=== PATIENT | female | born 1965 | race Caucasian/White ===

== ENCOUNTER 2016-11-27 18:04 | Inpatient (IN) | payer MEDICAID, OTHER ==
[~2016-11-27] VITALS: Ht 167.6 cm; Wt 76.7 kg
[2016-11-27] MEDS ORDERED: RIVA20TA PO (18:32)
[2016-11-27] MEDS ORDERED: GABA-531 PO (18:32)
[2016-11-27] MEDS ORDERED: CLON2 PO (18:32)
[2016-11-27] MEDS ORDERED: TRAM50TA4 PO (18:32)
[2016-11-27] MEDS ORDERED: LITH300CRT PO (18:32)
[2016-11-27] MEDS ORDERED: TIZA4TAB4 PO (18:32)
[2016-11-27] MEDS ORDERED: TRAZ150 PO (18:32)
[2016-11-27] MEDS ORDERED: LEVO100 PO (18:32)
[2016-11-27] MEDS ORDERED: QUET200T PO (18:32)
[2016-11-27 19:08] LABS: BASOPHILS % (AUTO) 0.2 % (0.0-2.0); EOSINOPHILS % (AUTO) 1.1 % (1.0-6.0); HEMOGLOBIN 13.2 g/dL (12.0-16.0); LYMPHOCYTES # (AUTO) 1.5 K/uL (1.0-4.8); MEAN CORPUSCULAR HEMOGLOBIN 29.4 pg (26.0-34.0); MEAN CORPUSCULAR HGB CONC 34.7 G/dL (31.0-37.0); MEAN CORPUSCULAR VOLUME 85 fL (80-100); MONOCYTES # (AUTO) 0.4 K/uL (0.1-1.0); MONOCYTES % (AUTO) 5.9 % (2.0-9.0); NEUTROPHILS # (AUTO) 4.3 K/uL (1.8-7.7); NEUTROPHILS % (AUTO) 68.8 % (40.0-70.0); PLATELET COUNT (AUTO) 244 K/uL (150-450); RED BLOOD CELL COUNT(AUTO) 4.49 MIL/uL (4.00-5.20); RED CELL DISTRIBUTION WIDTH 15.6 % (11.5-14.5); WHITE BLOOD COUNT (AUTO) 6.3 K/uL (4.5-11.0)
[2016-11-27 19:19] LABS: ANION GAP 6 mmol/L (8-16); CALCIUM, TOTAL 9.2 mg/dL (8.8-10.5); CARBON DIOXIDE 30 mmol/L (22-29); CHLORIDE 106 mmol/L (98-107); CREATININE 1.03 mg/dL (0.60-1.30); GLOMERULAR FILTR. RATE CALC 57 mL/min (>60); POTASSIUM 3.8 mmol/L (3.5-5.1); SODIUM SERUM 142 mmol/L (136-145); UREA NITROGEN, BLOOD 7 mg/dL (7-18)
[2016-11-27 19:24] LABS: ALANINE AMINOTRANSFERASE 26 U/L (12-78); ALBUMIN 4.1 g/dL (3.4-5.0); ASPARTATE AMINOTRANSFERASE 23 U/L (15-37); BILIRUBIN,TOTAL 0.7 mg/dL (0.1-1.0); TOTAL PROTEIN, SERUM 7.2 g/dL (6.4-8.2)
[2016-11-27] MEDS ORDERED: LORazepam 2 MG/ML VIAL IM ONE (20:00)
[2016-11-27] MEDS ORDERED: DiphenhydrAMINE HCL 50 MG/ML VIAL IM ONE (20:00)
[2016-11-27] MEDS ORDERED: HALOPERIDOL LACTATE 5 MG/ML VIAL IM ONE (20:00)
[2016-11-27] MEDS ORDERED: ZOLPIDEM TARTRATE 10 MG TABLET PO PRN (20:45)
[2016-11-27] MEDS ORDERED: OLANZapine 5 MG RAPDIS TABLET PO PRN (20:45)
[2016-11-27 20:52] LABS: LITHIUM 0.43 mmol/L (0.60-1.20)
[2016-11-27] MEDS: TraZODone HCL 50 MG TABLET PO SCH (21:00)
[2016-11-27 22:30] VITALS: BP 123/72
[2016-11-28 07:52] LABS: CHOL/HDL RATIO 3.6 (3.9-5.7)
[2016-11-28] MEDS: LITHIUM CARBONATE 300 MG CAPSULE PO SCH ×3 (09:00→16:07)
[2016-11-28] MEDS ORDERED: QUEtiapine FUMARATE 100 MG TABLET PO SCH (09:00)
[2016-11-28] MEDS ORDERED: GABAPENTIN 100 MG CAPSULE PO SCH (09:00)
[2016-11-28] MEDS: LORazepam 2 MG TABLET PO PRN ×3 (10:03→20:12)
[2016-11-28 13:58] VITALS: BP 117/94
[2016-11-28] MEDS ORDERED: ACETAMINOPHEN 325 MG TABLET PO PRN (14:45)
[2016-11-28] MEDS ORDERED: PROMETHAZINE HCL 25 MG TABLET PO PRN (14:45)
[2016-11-28] MEDS ORDERED: MAG HYDROX/AL HYDROX/SIMETH ES 30 ML SUSPENSION UDCUP PO PRN (14:45)
[2016-11-28] MEDS ORDERED: LOPERAMIDE HCL 2 MG CAPSULE PO PRN (14:45)
[2016-11-28] MEDS ORDERED: HydrOXYzine PAMOATE 50 MG CAPSULE PO PRN (14:45)
[2016-11-28] MEDS ORDERED: MAGNESIUM HYDROXIDE SUSPENSION 30 ML UDCUP PO PRN (14:45)
[2016-11-28] MEDS ORDERED: TUBERCULIN, PURIFIED PROTEIN DERIVATIVE 5 TU/0.1 ML SYG ID ONE (14:45)
[2016-11-28] MEDS ORDERED: GuaiFENesin/D-METHORPHAN [SUGAR-FREE] 200-20MG/10 ML SYRUP UDCUP PO PRN (14:45)
[2016-11-28] MEDS: THIAMINE HCL 100 MG TABLET PO SCH (16:07)
[2016-11-28] MEDS: GABAPENTIN 300 MG CAPSULE PO SCH (16:07)
[2016-11-28] MEDS: MULTIVITAMINS WITH MINERALS, THERAPEUTIC TABLET PO SCH (16:07)
[2016-11-28] MEDS: RIVAROXABAN 20 MG TABLET PO SCH (16:07)
[2016-11-28] MEDS: FOLIC ACID 1 MG TABLET PO SCH (16:07)
[2016-11-28 16:50] VITALS: BP 108/68
[2016-11-28] MEDS: TraZODone HCL 50 MG TABLET PO SCH (20:12)
[2016-11-28] MEDS: QUEtiapine FUMARATE 200 MG TABLET PO SCH (20:12)
[2016-11-29 00:57] VITALS: BP 112/71
[2016-11-29] MEDS ORDERED: PNEUMOCOCCAL VACCINE POLYVALENT 0.5 ML VIAL [PPSV23] IM ONE (02:15)
[2016-11-29] MEDS: LITHIUM CARBONATE 300 MG CAPSULE PO SCH ×2 (08:35→16:41)
[2016-11-29] MEDS: FOLIC ACID 1 MG TABLET PO SCH (08:35)
[2016-11-29] MEDS: GABAPENTIN 300 MG CAPSULE PO SCH ×3 (08:35→16:41)
[2016-11-29] MEDS: MULTIVITAMINS WITH MINERALS, THERAPEUTIC TABLET PO SCH (08:35)
[2016-11-29] MEDS: THIAMINE HCL 100 MG TABLET PO SCH ×2 (08:35→16:40)
[2016-11-29] MEDS: NICOTINE 21 MG/24 HOUR PATCH TD SCH (08:36)
[2016-11-29 08:44] VITALS: BP 108/64
[2016-11-29] MEDS: LORazepam 2 MG TABLET PO PRN ×2 (10:03→16:41)
[2016-11-29 10:07] VITALS: BP 140/63
[2016-11-29 10:16] LABS: THYROID STIMULATING HORMONE 3.43 uIU/mL (0.36-3.74)
[2016-11-29] MEDS ORDERED: ACETAMINOPHEN 325 MG TABLET PO PRN (11:30)
[2016-11-29] MEDS ORDERED: IBUPROFEN 600 MG TABLET PO PRN (11:30)
[2016-11-29] MEDS ORDERED: HALOPERIDOL LACTATE 5 MG/ML VIAL IM ONE (12:45)
[2016-11-29] MEDS ORDERED: DiphenhydrAMINE HCL 50 MG/ML VIAL IM ONE (12:45)
[2016-11-29] MEDS ORDERED: LORazepam 2 MG/ML VIAL IM ONE (12:45)
[2016-11-29] MEDS: LEVOTHYROXINE SODIUM 100 MCG TABLET PO SCH (13:02)
[2016-11-29 16:07] VITALS: BP 105/66
[2016-11-29] MEDS: RIVAROXABAN 20 MG TABLET PO SCH (16:41)
[2016-11-29] MEDS ORDERED: LORazepam 2 MG TABLET PO ONE (17:15)
[2016-11-29] MEDS: QUEtiapine FUMARATE 200 MG TABLET PO SCH (20:54)
[2016-11-29] MEDS ORDERED: GABAPENTIN 400 MG CAPSULE PO SCH (21:00)
[2016-11-30 04:04] VITALS: BP 111/77
[2016-11-30] MEDS: LEVOTHYROXINE SODIUM 100 MCG TABLET PO SCH (06:26)
[2016-11-30 08:02] VITALS: BP 102/53
[2016-11-30] MEDS: GABAPENTIN 300 MG CAPSULE PO SCH (08:10)
[2016-11-30] MEDS: LITHIUM CARBONATE 300 MG CAPSULE PO SCH ×2 (08:10→16:02)
[2016-11-30] MEDS: NICOTINE 21 MG/24 HOUR PATCH TD SCH (08:10)
[2016-11-30] MEDS: QUEtiapine FUMARATE 25 MG TABLET PO SCH ×3 (08:10→16:02)
[2016-11-30] MEDS: FOLIC ACID 1 MG TABLET PO SCH (08:10)
[2016-11-30] MEDS: THIAMINE HCL 100 MG TABLET PO SCH ×2 (08:10→16:02)
[2016-11-30] MEDS: MULTIVITAMINS WITH MINERALS, THERAPEUTIC TABLET PO SCH (08:10)
[2016-11-30] MEDS: LORazepam 2 MG TABLET PO PRN ×2 (09:11→13:38)
[2016-11-30] MEDS ORDERED: QUET25TA34 PO (15:14)
[2016-11-30] MEDS ORDERED: QUET200T29 PO (15:14)
[2016-11-30] MEDS ORDERED: LITH300C3 PO (15:14)
[2016-11-30] MEDS ORDERED: GABA-533 PO (15:14)
[2016-11-30] MEDS: RIVAROXABAN 20 MG TABLET PO SCH (16:02)
[2016-11-30 16:31] VITALS: BP 124/77
== END 2016-11-30 16:45 | disposition home or self-care (01) | DRG 750 ==
LOC: EMS 18:08 → B3A 11-28 12:33
PROVIDERS: ADMIT Psychiatry & Neurology Psychiatry; ATTEND Psychiatry & Neurology Psychiatry
DX: F25.0 Schizoaffective disorder, bipolar type (principal); Z91.14 Patient's other noncompliance with medication regimen; I10 Essential (primary) hypertension; E03.9 Hypothyroidism, unspecified; G89.29 Other chronic pain; S41.112A Laceration without foreign body of left upper arm, initial encounter; F17.210 Nicotine dependence, cigarettes, uncomplicated; Z86.718 Personal history of other venous thrombosis and embolism; Z59.0 Homelessness; Z79.01 Long term (current) use of anticoagulants; Z28.21 Immunization not carried out because of patient refusal
CPT/HCPCS: 84436; 84439; 84443; 96372; 99285; 99406; G0480; J1200; J1630; J2060

== ENCOUNTER 2017-11-02 12:00 | Inpatient (IN) | payer MEDICAID ==
[~2017-11-02 12:00] MED LIST: GABA-533 PO; LEVO100 PO; LITH300C3 PO; QUET200T29 PO; QUET25TA34 PO
[2017-11-02] MEDS ORDERED: DiphenhydrAMINE HCL 50 MG/ML VIAL ONE (12:14)
[2017-11-02] MEDS ORDERED: HALOPERIDOL LACTATE 5 MG/ML VIAL ONE (12:14)
[2017-11-02] MEDS ORDERED: LORazepam 2 MG/ML VIAL ONE (12:14)
[2017-11-02] MEDS ORDERED: HALOPERIDOL LACTATE 5 MG/ML VIAL IM ONE (12:15)
[2017-11-02] MEDS ORDERED: DiphenhydrAMINE HCL 50 MG/ML VIAL IM ONE (12:15)
[2017-11-02] MEDS ORDERED: HALOPERIDOL 5 MG TABLET PO PRN (12:15)
[2017-11-02] MEDS ORDERED: LORazepam 2 MG/ML VIAL IM ONE (12:15)
[2017-11-02] MEDS ORDERED: NICOTINE 21 MG/24 HOUR PATCH TD SCH (14:30)
[2017-11-02 14:52] VITALS: BP 92/54
[2017-11-02] MEDS ORDERED: MAG HYDROX/AL HYDROX/SIMETH ES 30 ML SUSPENSION UDCUP PO PRN (15:45)
[2017-11-02] MEDS ORDERED: LOPERAMIDE HCL 2 MG CAPSULE PO PRN (15:45)
[2017-11-02] MEDS ORDERED: PROMETHAZINE HCL 25 MG TABLET PO PRN (15:45)
[2017-11-02] MEDS ORDERED: HydrOXYzine PAMOATE 50 MG CAPSULE PO PRN (15:45)
[2017-11-02] MEDS ORDERED: MAGNESIUM HYDROXIDE SUSPENSION 30 ML UDCUP PO PRN (15:45)
[2017-11-02] MEDS ORDERED: ACETAMINOPHEN 325 MG TABLET PO PRN (15:45)
[2017-11-02] MEDS ORDERED: GuaiFENesin/D-METHORPHAN [SUGAR-FREE] 200-20MG/10 ML SYRUP UDCUP PO PRN (15:45)
[2017-11-02 16:03] VITALS: BP 115/76
[2017-11-02] MEDS: LORazepam 1 MG TABLET PO PRN ×2 (16:59→22:02)
[2017-11-02] MEDS: RIVAROXABAN 15 MG TABLET PO SCH (16:59)
[2017-11-02] MEDS: NICOTINE 21 MG/24 HOUR PATCH TD SCH (17:00)
[2017-11-02] MEDS ORDERED: RIVAROXABAN 20 MG TABLET PO ONE (17:00)
[2017-11-02] MEDS: LITHIUM CARBONATE 300 MG CAPSULE PO SCH (17:05)
[2017-11-02] MEDS: THIAMINE HCL 100 MG TABLET PO SCH (17:05)
[2017-11-02] MEDS: BACITRACIN 28.4 GM OINTMENT TP SCH (17:29)
[2017-11-02] MEDS: GABAPENTIN 300 MG CAPSULE PO SCH (20:43)
[2017-11-02] MEDS: QUEtiapine FUMARATE 200 MG TABLET PO SCH (20:43)
[2017-11-02] MEDS ORDERED: GABAPENTIN 400 MG CAPSULE PO SCH (21:00)
[2017-11-03] MEDS: LEVOTHYROXINE SODIUM 100 MCG TABLET PO SCH (06:21)
[2017-11-03] MEDS: RIVAROXABAN 15 MG TABLET PO SCH ×2 (06:22→17:00)
[2017-11-03 08:16] VITALS: BP 111/57
[2017-11-03 08:33] LABS: HEMOGLOBIN 14.3 g/dL (12.0-16.0); LYMPHOCYTES # (AUTO) 1.3 K/uL (1.0-4.8); MONOCYTES # (AUTO) 0.3 K/uL (0.1-1.0); NEUTROPHILS # (AUTO) 3.8 K/uL (1.8-7.7); RED CELL DISTRIBUTION WIDTH 12.8 % (11.5-14.5)
[2017-11-03 08:57] LABS: BASOPHILS % (AUTO) 0.3 % (0.0-2.0); EOSINOPHILS % (AUTO) 1.2 % (1.0-6.0); HEMATOCRIT 39.7 % (36-46); MEAN CORPUSCULAR HEMOGLOBIN 31.7 pg (26.0-34.0); MEAN CORPUSCULAR HGB CONC 35.9 G/dL (31.0-37.0); MEAN CORPUSCULAR VOLUME 88 fL (80-100); MONOCYTES % (AUTO) 5.4 % (2.0-9.0); NEUTROPHILS % (AUTO) 70.1 % (40.0-70.0); PLATELET COUNT (AUTO) 252 K/uL (150-450)
[2017-11-03 09:04] LABS: LITHIUM 0.45 mmol/L (0.60-1.20)
[2017-11-03] MEDS: LITHIUM CARBONATE 300 MG CAPSULE PO SCH ×2 (09:08→17:00)
[2017-11-03] MEDS: NICOTINE 21 MG/24 HOUR PATCH TD SCH (09:08)
[2017-11-03] MEDS: FOLIC ACID 1 MG TABLET PO SCH (09:08)
[2017-11-03] MEDS: BACITRACIN 28.4 GM OINTMENT TP SCH ×2 (09:08→17:00)
[2017-11-03] MEDS: THIAMINE HCL 100 MG TABLET PO SCH ×2 (09:09→17:00)
[2017-11-03] MEDS: LORazepam 1 MG TABLET PO PRN ×3 (09:09→23:28)
[2017-11-03] MEDS: GABAPENTIN 300 MG CAPSULE PO SCH ×4 (09:09→20:45)
[2017-11-03] MEDS: MULTIVITAMINS WITH MINERALS, THERAPEUTIC TABLET PO SCH (09:09)
[2017-11-03 09:14] LABS: HEMOGLOBIN A1C 5.6 % (4.5-6.2)
[2017-11-03 10:00] LABS: ALANINE AMINOTRANSFERASE 27 U/L (12-78); ALBUMIN 3.9 g/dL (3.4-5.0); ALKALINE PHOSPHATASE 71 U/L (46-116); ANION GAP 7 mmol/L (8-16); ASPARTATE AMINOTRANSFERASE 24 U/L (15-37); BILIRUBIN,TOTAL 0.6 mg/dL (0.1-1.0); CALCIUM, TOTAL 8.4 mg/dL (8.8-10.5); CARBON DIOXIDE 28 mmol/L (22-29); CHLORIDE 106 mmol/L (98-107); CHOL/HDL RATIO 3.7 (3.9-5.7); CHOLESTEROL 166 mg/dL (131-200); CREATININE 0.78 mg/dL (0.60-1.30); FREE T4 (FREE THYROXINE) 0.92 ng/dL (0.76-1.46); GLOMERULAR FILTR. RATE CALC > 60 mL/min (>60); GLUCOSE,RANDOM 93 mg/dL (70-110); HCG,QUANTITATIVE < 1 mIU/mL (0-6); HDL CHOLESTEROL 45 mg/dL (40-60); LDL CHOL (CALC.) 98 mg/dL (0-130); POTASSIUM 3.6 mmol/L (3.5-5.1); SODIUM SERUM 141 mmol/L (136-145); THYROID STIMULATING HORMONE 2.71 uIU/mL (0.36-3.74); TOTAL PROTEIN, SERUM 7.1 g/dL (6.4-8.2); TRIGLYCERIDES 115 mg/dL (15-150); UREA NITROGEN, BLOOD 11 mg/dL (7-18)
[2017-11-03] MEDS: TraMADol HCL 50 MG TABLET PO PRN ×2 (10:59→18:37)
[2017-11-03] MEDS ORDERED: DiphenhydrAMINE HCL 50 MG/ML VIAL IM ONE (16:15)
[2017-11-03] MEDS ORDERED: LORazepam 2 MG/ML VIAL ONE (16:15)
[2017-11-03] MEDS ORDERED: HALOPERIDOL LACTATE 5 MG/ML VIAL IM ONE (16:15)
[2017-11-03] MEDS ORDERED: LORazepam 2 MG/ML VIAL IM ONE (16:15)
[2017-11-03 18:37] VITALS: BP 113/72
[2017-11-03 18:38] VITALS: BP 113/72
[2017-11-03] MEDS: QUEtiapine FUMARATE 200 MG TABLET PO SCH (20:45)
[2017-11-03] MEDS: ZOLPIDEM TARTRATE 10 MG TABLET PO PRN (21:19)
[2017-11-04] VITALS: BP 110/65
[2017-11-04] MEDS: LEVOTHYROXINE SODIUM 100 MCG TABLET PO SCH (06:27)
[2017-11-04] MEDS: RIVAROXABAN 15 MG TABLET PO SCH ×2 (06:27→16:56)
[2017-11-04] MEDS: LORazepam 1 MG TABLET PO PRN ×4 (06:33→22:34)
[2017-11-04] MEDS: TraMADol HCL 50 MG TABLET PO PRN (06:50)
[2017-11-04 08:28] VITALS: BP 130/71
[2017-11-04] MEDS: FOLIC ACID 1 MG TABLET PO SCH (09:08)
[2017-11-04] MEDS: LITHIUM CARBONATE 300 MG CAPSULE PO SCH ×2 (09:08→16:56)
[2017-11-04] MEDS: NICOTINE 21 MG/24 HOUR PATCH TD SCH (09:09)
[2017-11-04] MEDS: GABAPENTIN 300 MG CAPSULE PO SCH ×4 (09:09→21:29)
[2017-11-04] MEDS: BACITRACIN 28.4 GM OINTMENT TP SCH ×2 (09:09→16:56)
[2017-11-04] MEDS: THIAMINE HCL 100 MG TABLET PO SCH ×2 (09:09→16:56)
[2017-11-04] MEDS: MULTIVITAMINS WITH MINERALS, THERAPEUTIC TABLET PO SCH (09:09)
[2017-11-04 16:08] VITALS: BP 113/68
[2017-11-04 16:44] LABS: GLUCOMETER DEV NAME(LOC) BV3S 2; GLUCOSE,POINT OF CARE 122 MG/DL (70-110)
[2017-11-04] MEDS: ZOLPIDEM TARTRATE 10 MG TABLET PO PRN (21:00)
[2017-11-04] MEDS: QUEtiapine FUMARATE 200 MG TABLET PO SCH (21:29)
[2017-11-04] MEDS ORDERED: HALOPERIDOL LACTATE 5 MG/ML VIAL ONE (22:57)
[2017-11-04] MEDS ORDERED: DiphenhydrAMINE HCL 50 MG/ML VIAL ONE (22:57)
[2017-11-04] MEDS ORDERED: HALOPERIDOL LACTATE 5 MG/ML VIAL IM ONE (23:00)
[2017-11-04] MEDS ORDERED: DiphenhydrAMINE HCL 50 MG/ML VIAL IM ONE (23:00)
[2017-11-05] MEDS: LEVOTHYROXINE SODIUM 100 MCG TABLET PO SCH (06:30)
[2017-11-05] MEDS: RIVAROXABAN 15 MG TABLET PO SCH ×2 (06:46→16:00)
[2017-11-05 08:30] VITALS: BP 121/65
[2017-11-05] MEDS: GABAPENTIN 300 MG CAPSULE PO SCH ×4 (08:52→20:43)
[2017-11-05] MEDS: LITHIUM CARBONATE 300 MG CAPSULE PO SCH ×2 (08:52→16:26)
[2017-11-05] MEDS: THIAMINE HCL 100 MG TABLET PO SCH ×2 (08:53→16:00)
[2017-11-05] MEDS: FOLIC ACID 1 MG TABLET PO SCH (08:53)
[2017-11-05] MEDS: LORazepam 1 MG TABLET PO PRN ×2 (08:53→13:44)
[2017-11-05] MEDS: MULTIVITAMINS WITH MINERALS, THERAPEUTIC TABLET PO SCH (08:53)
[2017-11-05] MEDS: BACITRACIN 28.4 GM OINTMENT TP SCH ×2 (08:54→16:00)
[2017-11-05] MEDS: NICOTINE 21 MG/24 HOUR PATCH TD SCH (08:58)
[2017-11-05] MEDS: QUEtiapine FUMARATE 100 MG TABLET PO PRN (10:32)
[2017-11-05 11:40] VITALS: BP 126/74
[2017-11-05] MEDS: TraMADol HCL 50 MG TABLET PO PRN (11:47)
[2017-11-05 16:05] VITALS: BP 103/68
[2017-11-05] MEDS ORDERED: HALOPERIDOL LACTATE 5 MG/ML VIAL ONE (18:52)
[2017-11-05] MEDS ORDERED: LORazepam 2 MG/ML VIAL ONE ×2 (18:52)
[2017-11-05] MEDS ORDERED: DiphenhydrAMINE HCL 50 MG/ML VIAL ONE (18:52)
[2017-11-05] MEDS ORDERED: HALOPERIDOL LACTATE 5 MG/ML VIAL IM ONE ×2 (19:00)
[2017-11-05] MEDS ORDERED: DiphenhydrAMINE HCL 50 MG/ML VIAL IM ONE ×2 (19:00)
[2017-11-05] MEDS ORDERED: LORazepam 2 MG/ML VIAL IM ONE ×2 (19:00)
[2017-11-05 19:40] VITALS: BP 119/72
[2017-11-05] MEDS: QUEtiapine FUMARATE 200 MG TABLET PO SCH (20:43)
[2017-11-05] MEDS: ZOLPIDEM TARTRATE 10 MG TABLET PO PRN (22:43)
[2017-11-06] MEDS: LEVOTHYROXINE SODIUM 100 MCG TABLET PO SCH (06:32)
[2017-11-06] MEDS: RIVAROXABAN 15 MG TABLET PO SCH ×2 (06:32→16:44)
[2017-11-06 06:44] VITALS: BP 103/73
[2017-11-06] MEDS: LITHIUM CARBONATE 300 MG CAPSULE PO SCH ×2 (08:23→16:46)
[2017-11-06] MEDS: TraMADol HCL 50 MG TABLET PO PRN ×3 (08:23→21:00)
[2017-11-06] MEDS: MULTIVITAMINS WITH MINERALS, THERAPEUTIC TABLET PO SCH (08:23)
[2017-11-06] MEDS: FOLIC ACID 1 MG TABLET PO SCH (08:23)
[2017-11-06] MEDS: THIAMINE HCL 100 MG TABLET PO SCH ×2 (08:23→16:45)
[2017-11-06] MEDS: LORazepam 1 MG TABLET PO PRN ×3 (08:23→17:03)
[2017-11-06] MEDS: QUEtiapine FUMARATE 100 MG TABLET PO PRN ×2 (08:23→16:44)
[2017-11-06] MEDS: GABAPENTIN 300 MG CAPSULE PO SCH ×4 (08:23→21:00)
[2017-11-06] MEDS: BACITRACIN 28.4 GM OINTMENT TP SCH ×2 (08:24→17:04)
[2017-11-06 08:28] VITALS: BP 103/63
[2017-11-06] MEDS: NICOTINE 21 MG/24 HOUR PATCH TD SCH (09:00)
[2017-11-06] MEDS ORDERED: LITH300C3 PO (15:33)
[2017-11-06] MEDS ORDERED: QUET200T29 PO (15:33)
[2017-11-06] MEDS ORDERED: GABA-531 PO (15:33)
[2017-11-06 16:07] VITALS: BP 109/70
[2017-11-06] MEDS: ZOLPIDEM TARTRATE 10 MG TABLET PO PRN (21:00)
[2017-11-06] MEDS ORDERED: QUEtiapine FUMARATE 200 MG TABLET PO SCH (21:00)
[2017-11-07] VITALS: BP 113/66
[2017-11-07] MEDS: LORazepam 1 MG TABLET PO PRN ×3 (00:03→07:07)
[2017-11-07] MEDS: QUEtiapine FUMARATE 100 MG TABLET PO PRN ×2 (00:03→08:09)
[2017-11-07] MEDS: RIVAROXABAN 15 MG TABLET PO SCH (06:35)
[2017-11-07] MEDS: LEVOTHYROXINE SODIUM 100 MCG TABLET PO SCH (06:35)
[2017-11-07] MEDS: LITHIUM CARBONATE 300 MG CAPSULE PO SCH (08:07)
[2017-11-07] MEDS: GABAPENTIN 300 MG CAPSULE PO SCH (08:07)
[2017-11-07] MEDS: THIAMINE HCL 100 MG TABLET PO SCH (08:07)
[2017-11-07] MEDS: MULTIVITAMINS WITH MINERALS, THERAPEUTIC TABLET PO SCH (08:08)
[2017-11-07] MEDS: FOLIC ACID 1 MG TABLET PO SCH (08:08)
[2017-11-07] MEDS: BACITRACIN 28.4 GM OINTMENT TP SCH (08:22)
[2017-11-07 09:01] VITALS: BP 105/69
[2017-11-07] MEDS: NICOTINE 21 MG/24 HOUR PATCH TD SCH (09:02)
[2017-11-07] MEDS ORDERED: LEVO125T95 PO (09:30)
[2017-11-07] MEDS ORDERED: LITH300C3 PO (09:30)
[2017-11-07] MEDS ORDERED: RIVA15T PO (09:32)
[2017-11-07] MEDS ORDERED: GABA-531 PO (09:32)
== END 2017-11-07 11:58 | disposition home or self-care (01) | DRG 750 ==
LOC: B3A 12:12
PROVIDERS: ADMIT Psychiatry & Neurology Psychiatry; ATTEND Psychiatry & Neurology Psychiatry
DX: F25.9 Schizoaffective disorder, unspecified (principal); Z78.1 Physical restraint status; I10 Essential (primary) hypertension; E03.9 Hypothyroidism, unspecified; F17.210 Nicotine dependence, cigarettes, uncomplicated; G89.4 Chronic pain syndrome; J44.9 Chronic obstructive pulmonary disease, unspecified; Z59.0 Homelessness; Z65.3 Problems related to other legal circumstances; Z91.19 Patient's noncompliance with other medical treatment and regimen; Z79.899 Other long term (current) drug therapy; Z86.718 Personal history of other venous thrombosis and embolism
CPT/HCPCS: 83036; 84439; 84443; 86592; J1200; J1630; J2060